=== PATIENT | male | born 1960 | race Caucasian/White ===

== ENCOUNTER 2017-10-07 00:09 | Emergency (ER) | payer OTHER ==
[~2017-10-07] VITALS: Ht 180.3 cm; Wt 135.3 kg
[~2017-10-07 00:09] MED LIST: ALPR0.5T99 PO; COUM1TAB PO; CYCL-36 PO; LIDO5T TOP
[2017-10-07 00:11] VITALS: BP 138/91; PULSE 77; RESP 24; TEMP 97.4; O2SAT 100
[2017-10-07] MEDS ORDERED: COUM1TAB PO (00:22)
[2017-10-07] MEDS ORDERED: ALPR.5 PO (00:22)
[2017-10-07] MEDS ORDERED: PRED20 PO (00:22)
[2017-10-07 00:23] VITALS: RESP 20
[2017-10-07] MEDS ORDERED: PRED50 PO (01:00)
[2017-10-07] MEDS ORDERED: predniSONE 20 MG TAB PO ONE (01:00)
--- NOTE | 2017-10-07 01:00 | PD ---
HPI Chief Complaint: Pain: Acute or Chronic Time Seen by Provider: 00:48 Travel History International Travel<30 days: No Contact w/Intl Traveler<30days: No Traveled to known affect area: No History of Present Illness HPI The patient is a 57-year-old male with a history of back pain/spasms. Normally is treated with prednisone because he is on Coumadin. 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 He complains of right spasms going around the right ribs. He does have Flexeril at home. He denies any shortness of breath but the spasms trigger off when he starts moving certain positions. PFSH Past Medical History Hx Anticoagulant Therapy: Yes (COUMADIN) Arthritis: No Anxiety: Yes Depression: Yes Heart Rhythm Problems: No Cancer: No Cardiac Catheterization: No Cardiovascular Problems: Yes (PULMONARY EMBOLISM: April) High Cholesterol: Yes Chest Pain: Yes Congestive Heart Failure: No Diabetes: No Diminished Hearing: No Deep Vein Thrombosis: Yes (LEFT LEG: Sep) Endocrine: No Gastrointestinal Disorders: Yes (IBS) Genitourinary: Yes ("LUMP ON LEFT KIDNEY" BEING RULED OUT: STATED 12/11/15) Herniated Disk: Yes Hypertension: No Immune Disorder: No Kidney Stones: No Musculoskeletal: Yes ( CHRONIC BACK PAIN) Neurologic: Yes Psychiatric: Yes Reproductive: No Respiratory: No Migraines: Yes Myocardial Infarction: No Seizures: No Thyroid Disease: No Tetanus Vaccination: < 5 Years Influenza Vaccination: No Past Surgical History Abdominal Surgery: Yes (UMBILICAL HERNIA REPAIR WITH MESH: AGE 46) Coronary Artery Bypass Graft: No Eye Surgery: Yes (RIGHT CATARACT W/ LENSES REPLACEMENT) Oral Surgery: Yes (TONSILLECTOMY) Tonsillectomy: Yes Other Surgery: Yes (RECTAL FISSURE REPAIR, LYMPH/THROAT INCISION R/T SWELLING) Family History Family Myocardial Infarction: Yes (Uncle at age 51 of a heart attack) Social History Alcohol Use: No Tobacco Use: Yes (10/11 PPD) Substance Use: No Allergies-Medications (Allergen,Severity, Reaction): Coded Allergies: diatrizoate meglumine (Unverified Allergy, Intermediate, Hives, 10/07/17) gadobenic acid (Unverified Allergy, Intermediate, Hives, 10/07/17) gadodiamide (Unverified Allergy, Intermediate, Hives, 10/07/17) gadoteridol (Unverified Allergy, Intermediate, Hives, 10/07/17) iodixanol (Unverified Allergy, Intermediate, Hives, 10/07/17) iohexol (Unverified Allergy, Intermediate, Hives, 10/07/17) promethazine (Unverified Allergy, Intermediate, Confusion, 10/07/17) codeine (Unverified Adverse Reaction, Intermediate, nausea and vomiting, 10/07/17) Reported Meds & Prescriptions Reported Meds & Active Scripts Active Prednisone 50 Mg Tab 50 Mg PO BID Reported Prednisone 20 Mg Tab 20 Mg PO DIRECTED 40 MG twice a day x 3 days, then 20 MG daily x 3 days, then 10 MG daily x 3 days Xanax (Alprazolam) 0.5 Mg Tab 0.5 Mg PO Q8H PRN Coumadin (Warfarin) 1 Mg Tab 0.5 Mg PO DAILY Review of Systems Except as stated in HPI: all other systems reviewed are Neg Physical Exam Narrative GENERAL: Well-nourished, well-developed patient in slight apparent distress with his back discomfort. His vital signs show blood pressure 138/91 but otherwise normal. SKIN: Focused skin assessment warm/dry. HEAD: Normocephalic. EYES: No scleral icterus. No injection or drainage. NECK: Supple, trachea midline. No JVD or lymphadenopathy. CARDIOVASCULAR: Regular rate and rhythm without murmurs, gallops, or rubs. RESPIRATORY: Breath sounds equal bilaterally. No accessory muscle use. GASTROINTESTINAL: Abdomen soft, non-tender, nondistended. MUSCULOSKELETAL: No cyanosis, or edema. The pain is reproducible over the right lateral ribs but not reproducible over the back. BACK: Nontender without obvious deformity. No CVA tenderness. Data Data Last Documented VS Vital Signs Date Time Temp Pulse Resp B/P (MAP) Pulse Ox O2 Delivery O2 Flow Rate FiO2 10/07/17 00:23 20 10/07/17 00:11 97.4 77 138/91 (107) 100 Orders Orders Prednisone (Deltasone) (10/07/17 01:00) [facility] Medical Decision Making Medical Screen Exam Complete: Yes Emergency Medical Condition: Yes Medical Record Reviewed: Yes Differential Diagnosis Back spasms, intercostal nerve irritation Narrative Course The patient has back spasms. We are limited in what medications he can receive because he is on Coumadin. He will get prednisone 50 mg twice daily for 4 days followed by 50 mg daily for 4 days. He should also take his Flexeril at home, one tablet 3 times daily. He needs to follow-up with Dr. Wallace next week. Diagnosis Primary Impression: Back muscle spasm Additional Instructions: Follow-up with Dr. Wallace next week. As we discussed, the redness own is taken one tablet twice daily for 4 days followed by one tablet once daily for 4 days. Med/Other Pt SpecificInfo: Prescription(s) given Scripts Prednisone (Prednisone) 50 Mg Tab 50 MG PO BID for X 4 days than daily X 4 days, #12 TAB 0 Refills Prov: Redd Myers MD 10/07/17 Disposition: 01 DISCHARGE HOME Condition: Stable Redd Myers MD Oct 07, 2017 01:00
== END 2017-10-07 01:16 | disposition home or self-care (01) ==
LOC: PHED 00:09
DX: M62.830 Muscle spasm of back (principal); F17.200 Nicotine dependence, unspecified, uncomplicated; F41.9 Anxiety disorder, unspecified; F32.9 Major depressive disorder, single episode, unspecified; E78.00 Pure hypercholesterolemia, unspecified; Z86.718 Personal history of other venous thrombosis and embolism; Z87.19 Personal history of other diseases of the digestive system; Z86.711 Personal history of pulmonary embolism; Z79.01 Long term (current) use of anticoagulants
CPT/HCPCS: 99283; J7512